=== PATIENT | female | born 1935 | race Caucasian/White ===

== ENCOUNTER → 2024-04-26 | Outpatient (CLI) | payer SELFPAY ==
--- NOTE | 2024-04-26 14:10 | ECHOD_ITS ---
Version 2 Reason For Study: PERMANENT AFIB Procedure This was a 2D Doppler, Color Flow transthoracic echocardiogram. Exam performed in department. Left Ventricle Normal LV size. The estimated ejection fraction is 65 %. Unable to assess diastolic dysfunction. No regional wall motion abnormalities noted. Right Ventricle Normal RV size. Normal systolic function. Atria There is severe biatrial dilatation. No doppler evidence for ASD. Mitral Valve There is no mitral valve stenosis. Moderate (2+) mitral valve insufficiency. Tricuspid Valve There is no tricuspid stenosis. Mild tricuspid valve insufficiency. Pulmonary artery systolic pressure is 75 mmHg. Aortic Valve Trisinus/trileaflet aortic valve. Moderate diffuse aortic valve thickening. Mild aortic stenosis. Mild (1+) aortic valve insufficiency. Pulmonic Valve There is no pulmonic valvular stenosis. Trivial pulmonic valve insufficiency. Great Vessels Normal aortic root. Pericardium/Pleural No pericardial effusion. MMode/2D Measurements & Calculations LVIDd: 5.6 cm IVSd: 1.2 cm LVOT diam: 1.7 cm LVIDs: 3.9 cm LVPWd: 1.5 cm LVOT area: 2.4 cm2 FS: 31.5 % Ao root diam: 3.3 cm LAV(MOD-bp): 90.4 ml LVAd ap4: 26.7 cm2 LAV(MOD-bp) Indexed: 49.0 ml/m2 LVLd ap4: 7.3 cm LAV(MOD-sp2): 90.7 ml EDV(MOD-sp4): 86.1 ml LAV(MOD-sp4): 88.0 ml EDV(sp4-el): 83.3 ml LVAs ap4: 17.3 cm2 LVLs ap4: 5.9 cm ESV(MOD-sp4): 42.9 ml ESV(sp4-el): 42.9 ml EF(MOD-sp4): 50.1 % EF(sp4-el): 48.5 % SV(MOD-sp4): 43.1 ml SV(sp4-el): 40.4 ml LA A4 area: 22.2 cm2 LA dimension(2D): 5.3 cm Doppler Measurements & Calculations MV E max marcy: 99.5 cm/sec Ao V2 max: 278.0 cm/sec LV V1 max: 145.8 cm/sec Ao max P.3 mmHg LV V1 max P.6 mmHg Ao V2 mean: 190.6 cm/sec LV V1 mean P.1 mmHg Ao mean P.1 mmHg LV V1 mean: 103.9 cm/sec Ao V2 VTI: 59.2 cm LV V1 VTI: 35.4 cm AV (velocity ratio): 0.60 KAMARI(I,D): 1.4 cm2 KAMARI(V,D): 1.2 cm2 SV(LVOT): 84.3 ml TR max marcy: 414.6 cm/sec TR max P.8 mmHg ECHO/Echo Complete Interpretation Summary The estimated ejection fraction is 65 %. Unable to assess diastolic dysfunction. There is severe biatrial dilatation. Moderate (2+) mitral valve insufficiency. Mild (1+) aortic valve insufficiency. Mild aortic stenosis. Ordering Physician: Asia Zhao Referring Physician: Asia Zhao Performed By: Halley Douglas RCS
== END | disposition home or self-care (01) ==
PROVIDERS: PCP Nurse Practitioner Family; Referring Provider Nurse Practitioner Family; Visit Provider Nurse Practitioner Family
DX: I48.21 Permanent atrial fibrillation (principal)
CPT/HCPCS: 93306